=== PATIENT | female | born 1965 ===

== ENCOUNTER 2017-05-30 09:47 | Emergency (ER) | payer BC ==
[2017-05-30 09:53] VITALS: TEMP 98.4
[2017-05-30 09:54] VITALS: BMI 32.3
[2017-05-30] MEDS ORDERED: Morphine 4 MG/ML VIAL IVP ONE (10:20)
[2017-05-30] MEDS ORDERED: Sodium Chloride 0.9% 1,000 ML IV ONE (10:20)
--- NOTE | 2017-05-30 10:37 | ED PDOC ---
Past Medical History Vital Signs: Last Vital Signs Temp 98.4 F 05/30/17 09:53 Pulse 104 H 05/30/17 09:53 Resp 16 05/30/17 09:53 BP 112/62 05/30/17 09:53 Pulse Ox 98 05/30/17 09:53 - Medical History PMH: Anxiety, Fibromyalgia, Kidney Stones - Allergies Allergies/Adverse Reactions: Allergies Allergy/AdvReac Type Severity Reaction Status Date / Time No Known Allergies Allergy Verified 05/30/17 10:21 - ECG O2 Sat by Pulse Oximetry: 98 Disposition - Disposition
--- NOTE | 2017-05-30 10:42 | ED PDOC ---
HPI: General Adult Time Seen by Provider: 05/30/17 10:25 Chief Complaint (Nursing): Fever Chief Complaint (Provider): Fever History Per: Patient History/Exam Limitations: no limitations Have you had recent travel within the past 21 days to any of the following countries: [place], [place], [place] or [place]?: Yes Current Symptoms Are (Timing): Still Present Severity: Severe Pain Scale Rating Of: 10 Location: diffuse body pain Similar Symptoms Previously: yes Recent Trauma: no Recently: Treated By A Physician (at a local urgent care center) Additional Complaint(s): 51 y/o female with past medical history of fibromyalgia presents to the ED complaining of fever (Tmax -101), chills, sweats over last 2-3 days. Patient states her body feels like it is burning and on fire and has pins and needles sensation, rating pain 10/10. States that during fibromyalgia exacerbation this is how she feels. Reports that she is visiting a friend in [place] from [place]. She was evaluated at a local urgent care yesterday and her results showed no definitive findings to explain her fever. She woke up today with the same complaint and decided to the come to the ED for further evaluation. pt denied sore throat/runny nose/ear pain pt denied fall/trauma/sick contact pt denied vision changes/photophobia pt denied neck pain, chest pain, shortness of breath, palpitations, abdominal pain pt denied nausea, vomiting, rash, urinary of bowel problems PCP: at [place] Past Medical History Reviewed: Historical Data, Nursing Documentation, Vital Signs Vital Signs: Last Vital Signs Temp 98.4 F 05/30/17 09:53 Pulse 104 H 05/30/17 09:53 Resp 16 05/30/17 09:53 BP 112/62 05/30/17 09:53 Pulse Ox 98 05/30/17 11:47 - Medical History PMH: Anxiety, Fibromyalgia, Kidney Stones - Surgical History Surgical History: (x2) - Family History Family History: States: Unknown Family Hx - Social History Current smoker - smoking cessation education provided: No Alcohol: Social Drugs: Denies - Home Medications Home Medications: Ambulatory Orders Medication Instructions Recorded Ibuprofen [Motrin] 600 mg PO QID PRN #30 tab 05/30/17 - Allergies Allergies/Adverse Reactions: Allergies Allergy/AdvReac Type Severity Reaction Status Date / Time No Known Allergies Allergy Verified 05/30/17 10:21 Review of Systems ROS Statement: Except As Marked, All Systems Reviewed And Found Negative (As per HPI, otherwise negative) Constitutional: Positive for: Fever, Chills, Sweats, Weakness, Malaise. Negative for: Weight loss Eyes: Negative for: Pain, Vision Change ENT: Negative for: Ear Pain, Nose Congestion, Throat Pain Cardiovascular: Negative for: Chest Pain, Palpitations Respiratory: Negative for: Cough, Shortness of Breath Gastrointestinal: Negative for: Nausea, Vomiting, Abdominal Pain Genitourinary Female: Negative for: Dysuria, Hematuria, Vaginal Discharge, Vaginal Bleeding Musculoskeletal: Positive for: Back Pain, Other (diffuse body pain). Negative for: Neck Pain Skin: Negative for: Rash Neurological: Negative for: Weakness, Altered Mental Status, Headache Psych: Positive for: Anxiety Physical Exam - Reviewed Nursing Documentation Reviewed: Yes Vital Signs Reviewed: Yes (elevated HR, otherwise WNL) - Physical Exam Appears: Positive for: Well, Non-toxic, Uncomfortable (alert/awake, GCS = 15, oriented x 3, uncomfortable, mild-moderate distress due to active pain; + actively shaking/shivers/chills, no sweating, cooperative, resting in bed) Head Exam: Positive for: ATRAUMATIC, NORMAL INSPECTION, NORMOCEPHALIC Skin: Positive for: Normal Color (cap refill < 1sec, no ulcerations/petechiae, no pallor, no rashes), Warm, Dry. Negative for: Diaphoresis, Rash Eye Exam: Positive for: Normal appearance, EOMI, PERRL, Other (visual field intact b/l, no nystagmus, no photophobia) ENT: Positive for: Normal ENT Inspection, Other (uvula/tongue are midline, no exudate/lesions, no drooling/stridor, no dysphonia; intact dentitions) Neck: Positive for: Normal (no nuchal rigidity, no meningeal signs, no midline tenderness, intact ROM), Painless ROM, Supple, Trachea Midline Cardiovascular/Chest: Positive for: Regular Rate, Rhythm, Chest Non Tender, Other (no murmur, +S1, +S2). Negative for: Murmur Respiratory: Positive for: Normal Breath Sounds, Other (CTA b/l, no w/r/r, no accessory muscle use noted, no tachypenia, no belly retractions noted) Gastrointestinal/Abdominal: Positive for: Normal Exam, Bowel Sounds, Soft, Other (well nourished/obese female, no focal tenderness, no masses/rebound/ guarding/rigidity, no baires's sign, no mcburney's point tenderness) Back: Positive for: Normal Inspection. Negative for: L CVA Tenderness, R CVA Tenderness Extremity: Positive for: Normal ROM, Other (no gross swelling/edema noted, neurovasc intact b/l, intact ROM, strength 5/5 grossly intact in all limbs). 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 TECHNIQUE: Chest PA and lateral FINDINGS: LUNGS: Minor bibasilar atelectasis. PLEURA: No significant pleural effusion identified. No pneumothorax apparent. CARDIOVASCULAR: Heart size upper limits of normal. Aorta is slightly ectatic and uncoiled. OSSEOUS STRUCTURES: Minor multilevel degenerative spondylosis of the thoracic spine. VISUALIZED UPPER ABDOMEN: Normal. OTHER FINDINGS: None. IMPRESSION: Minor bibasilar atelectasis. 11:50am - pt is doing well, pt is feeling some improvement pt tolerated po well pt is awaiting further lab results 1:50pm - pt is comfortable but expressed concern if her pain returns what can she do i encouraged pt to f/u with her PCP when she leaves [place] in 2 days when she is back in [place] currently pt has no abnl findings, no abnl exam, no abnl results pt expressed understanding pt is not in any distress currently pt is made aware of her medical results pt is encouraged fluids pt is encouraged outpt f/u pt will be discharged home Re-evaluation Time: 13:30 Condition: Re-examined, Improving,but remains with symptoms Medical Decision Making Medical Decision Making: Time: 10:19 Impression: fever/chills/sweats, r/o infection; acute fibromyalgia exacerbation I have consider all the differential diagnosis regarding pt's chief medical complaints/clinical findings, including but are not limited to: fever/chills/ sweats, r/o infection; acute fibromyalgia exacerbation Plan: EKG CMP Lipase Magnesium Phosphorous Thyroid stimulating hormone Urine CBC w/ differential Chest x-ray Adis-vázquez virus Toradol 30m IVP Ativan 1mg IVP Morphine 4mg IVP Sodium chloride 1L IV Blood culture Urine culture Rapid strep group Urinalysis Supportive care Observe/Reevaluation Scribe Attestation: Documented by Geetha Mcclure acting as a scribe for Baldomero Valentino MD. Scribe Attestation: All medical record entries made by the Scribe were at my direction and personally dictated by me. I have reviewed the chart and agree that the record accurately reflects my personal performance of the history, physical exam, medical decision making, and the department course for this patient. I have also personally directed, reviewed, and agree with the discharge instructions and disposition. Disposition - Clinical Impression Clinical Impression: Fibromyalgia syndrome, Anxiety disorder, unspecified, Fever, Diffuse pain - Patient ED Disposition Is Patient to be Admitted: No Counseled Patient/Family Regarding: Studies Performed, Diagnosis, Need For Followup, Rx Given - Disposition Referrals: PCP,NO [Non-Staff] - Soham Cabrera MD [Staff Provider] - Disposition: Routine/Home Disposition Time: 13:57 Condition: STABLE Additional Instructions: Make sure to see your doctor in 1-2 days DRINK PLENTY OF FLUIDS take your medications as prescribed RETURN TO ED IF worse pain, cant breath, persistent vomiting, high fever >101- 102 for hours, altered behavior, slurr speech, facial changes, focal weakness ( arm/leg or both), unable to urinate, heavy/persistent bleeding, passing out, chest pain, or other medical emergencies Prescriptions: Ibuprofen [Motrin] 600 mg PO QID PRN #30 tab PRN Reason: Fever >100.4 F Instructions: Fibromyalgia, Anxiety, Adult (DC), Fever, Adult (DC), When to Worry About a Fever Forms: [employer] (Lithuanian) Print Language: LATVIAN
--- NOTE | 2017-05-30 10:46 | RAD ---
HISTORY: fever, chills COMPARISON: No prior. TECHNIQUE: Chest PA and lateral FINDINGS: LUNGS: Minor bibasilar atelectasis. PLEURA: No significant pleural effusion identified. No pneumothorax apparent. CARDIOVASCULAR: Heart size upper limits of normal. Aorta is slightly ectatic and uncoiled. OSSEOUS STRUCTURES: Minor multilevel degenerative spondylosis of the thoracic spine. VISUALIZED UPPER ABDOMEN: Normal. OTHER FINDINGS: None. IMPRESSION: Minor bibasilar atelectasis.
[2017-05-30 11:04] LABS: BASO % 0.2 % (0.0-2.0); EOS % 0.1 % (0.0-4.0); HEMOGLOBIN 10.3 g/dL (12.0-16.0); LYMPH # 0.4 K/uL (1.0-4.3); LYMPH % 8.2 % (20.0-40.0); MEAN CELL VOLUME 74.9 fl (81.0-99.0); MEAN CORPUSCULAR HEMOGLOBIN 24.7 pg (27.0-31.0); MEAN PLATELET VOLUME 8.8 fl (7.2-11.7); MONO # 0.5 K/uL (0.0-0.8); NEUT # 4.5 K/uL (1.8-7.0); NEUT % 82.5 % (50.0-75.0); PLATELET COUNT 166 K/uL (130-400); RBC 4.18 Mil/uL (3.80-5.20); RED CELL DISTRIBUTION WIDTH 17.3 % (11.5-14.5); WHITE BLOOD COUNT 5.4 K/uL (4.8-10.8)
[2017-05-30 11:05] LABS: ALB/GLOB RATIO 0.9 (1.0-2.1); ALBUMIN 3.5 g/dL (3.5-5.0); ALT/SGPT 72 U/L (9-52); AST/SGOT 52 U/L (14-36); BLOOD UREA NITROGEN 15 mg/dl (7-17); CALCIUM 9.1 mg/dL (8.4-10.2); GFR AFRICAN-AMERICAN > 60; GFR NON-AFRICAN AMERICAN > 60; LIPASE 121 U/L (23-300)
[2017-05-30 12:13] LABS: ANISOCYTOSIS SLIGHT; BANDS 7 % (0-2); EOSINOPHIL 1 % (0-7); LYMPHOCYTE 9 % (20-50); MONOCYTE 8 % (0-10); NEUTROPHIL 75 % (42-75); OVALOCYTES SLIGHT; PLATELET ESTIMATE NORMAL (NORMAL); TOTAL CELLS COUNTED 100
[2017-05-30 12:14] LABS: LARGE PLATELETS PRESENT
[2017-05-30 12:16] LABS: HYPOCHROMIC SLIGHT
[2017-05-30 12:16] LABS: URINE BILIRUBIN NEGATIVE (NEGATIVE); URINE BLOOD NEGATIVE (NEGATIVE); URINE CLARITY CLEAR (Clear); URINE COLOR YELLOW (YELLOW); URINE GLUCOSE (UA) NEG (Normal); URINE LEUKOCYTE ESTERASE NEG Leu/uL (Negative); URINE PROTEIN 30 mg/dL (NEGATIVE); URINE UROBILINOGEN 0.2-1.0 mg/dL (0.2-1.0)
[2017-05-30] MEDS ORDERED: Morphine 4 MG/ML VIAL ONE (12:50)
[2017-05-30 14:55] VITALS: BP 131/75; PULSE 90; RESP 18; O2SAT 100
--- NOTE | 2017-06-01 13:38 | CARD ---
APPROVED REPORT EKG Measurement Heart [id number] <Conclusion> Normal sinus rhythm Normal ECG
== END 2017-05-30 15:10 | disposition home or self-care (01) ==
LOC: H.ER 09:47
DX: M79.7 Fibromyalgia (principal); F41.9 Anxiety disorder, unspecified; R50.9 Fever, unspecified
CPT/HCPCS: 71046; 80053; 81003; 81025; 82550; 83690; 83735; 84100; 84443; 85025; 86664; 86665; 87040; 87070; 87086; 87181; 87430; 93005; 96361; 96374; 96375; 99284; J1885; J2060; J2270; J7040